=== PATIENT | female | born 1925 | race Caucasian/White ===

== ENCOUNTER 2016-12-27 19:40 | Inpatient (IN) | payer OTHER, MEDICARE ==
[~2016-12-27] VITALS: Ht 154.9 cm; Wt 81.4 kg
[2016-12-27] MEDS ORDERED: SODIUM CHLORIDE 0.9% 1000ML 1,000 ML IV STA (20:08)
[2016-12-27] MEDS ORDERED: SIMV10TA2 PO (20:26)
[2016-12-27] MEDS ORDERED: BND25 PO (20:26)
[2016-12-27] MEDS ORDERED: METO25TA56 PO (20:26)
[2016-12-27] MEDS ORDERED: MULT60CA PO (20:26)
[2016-12-27] MEDS ORDERED: CLOP1TAB15 PO (20:26)
[2016-12-27] MEDS ORDERED: NMN5 PO (20:26)
[2016-12-27] MEDS ORDERED: ASPI81TA28 PO (20:26)
[2016-12-27] MEDS ORDERED: DONE1TAB11 PO (20:26)
[2016-12-27 20:35] LABS: URINE APPEARANCE CLEAR (CLEAR); URINE BILIRUBIN NEG (NEG); URINE COLOR YELLOW; URINE EPITHELIAL CELL AUTO 20-30 /lpf (0-5); URINE NITRITE NEG (NEG); URINE SPECIFIC GRAVITY 1.018 (1.000-1.030); UROBILINOGEN NEG (NEG)
[2016-12-27 20:38] LABS: MANUAL MICROSCOPIC REQUIRED? NO; REVIEW REQ? NO
[2016-12-27 21:36] LABS: BASO % 0.3 %; BASO ABS # 0.04 K/uL (0-0.2); COMPLETE YES; EOS % 2.9 %; HEMATOCRIT 43.9 % (37-47); IG% 0.2 %; LYMPH % 25.8 %; LYMPH ABS # 3.27 K/uL (1.2-3.4); MEAN CELL VOLUME 95.6 fL (80-100); MEAN CORPUSCULAR HEMOGLOBIN 32.5 pg (25-34); MEAN CORPUSCULAR HGB CONC 33.9 g/dl (32-36); MONO % 8.7 %; NEUT % 62.1 %; PLATELET COUNT 236 K/uL (130-400); RED BLOOD COUNT 4.59 M/uL (4.2-5.4); WHITE BLOOD COUNT 12.69 K/uL (4.8-10.8)
[2016-12-27 21:44] LABS: PARTIAL THROMBOPLASTIN RATIO 1.1; PROTHROMBIN TIME (PATIENT) 10.9 SECONDS (9.0-12.0)
--- NOTE | 2016-12-27 21:55 | DIAGNOSTIC IMAGING REPORT ---
LEFT KNEE 1 OR 2 VIEWS ROUTINE CLINICAL HISTORY: Fall. Left knee hematoma. COMPARISON: None FINDINGS: Alignment of the total left knee arthroplasty is anatomic. There are 2 screws within the distal left femur. Alignment of the left knee is anatomic. Lateral view demonstrates a distal left femoral lucency adjacent to the anterior aspect of the femoral component of the knee arthroplasty There is a possible small left knee joint effusion. Edema/contusion of the anterolateral subcutaneous tissues of the left knee is noted. IMPRESSION: 1. Status post total left knee arthroplasty. Distal left femoral periprosthetic lucency. This is equivocal for a nondisplaced periprosthetic fracture. 2. Possible small left knee joint effusion. 3. Edema/contusion of the subcutaneous tissues of the anterolateral left knee. Electronically signed by: Kelvin Garcia M.D. 12/27/2016 9:53 PM Dictated Date/Time: 12/27/2016 9:46 PM
--- NOTE | 2016-12-27 21:56 | DIAGNOSTIC IMAGING REPORT ---
CHEST ONE VIEW PORTABLE CLINICAL HISTORY: Weakness. Fall. COMPARISON STUDY: No previous studies for comparison. FINDINGS: Lung volumes are normal. There is no consolidation. There is hazy left basilar opacity. Mild cardiomegaly is noted. There is no evidence of pulmonary edema. There is no pneumothorax or pleural effusion. IMPRESSION: 1. No acute cardiopulmonary findings. 2. Hazy left basilar opacity. While nonspecific, epicardial fat pad or atelectasis is favored. Electronically signed by: Kelvin Garcia M.D. 12/27/2016 9:55 PM Dictated Date/Time: 12/27/2016 9:54 PM
[2016-12-27 22:11] LABS: ALT/SGPT 17 U/L (12-78); BLOOD UREA NITROGEN 29 mg/dl (7-18); BUN/CREATININE RATIO 23.9 (10-20); CALCIUM 9.1 mg/dl (8.5-10.1); CARBON DIOXIDE 28 mmol/L (21-32); CHLORIDE 108 mmol/L (98-107); GLUCOSE 79 mg/dl (70-99); MAGNESIUM 2.5 mg/dl (1.8-2.4); POTASSIUM 4.4 mmol/L (3.5-5.1); SODIUM 142 mmol/L (136-145)
[2016-12-27 22:22] LABS: ALKALINE PHOSPHATASE 154 U/L (45-117); AST/SGOT 19 U/L (15-37)
[2016-12-27] MEDS ORDERED: CIPROFLOXACIN 400MG / 200ML D5W IV STA (22:32)
--- NOTE | 2016-12-27 23:52 | History and Physical ---
History & Physical Date & Time of Service: Dec 27, 2016 at 23:52 Chief Complaint: Fell,Dizzy,Weak For 5 Days,Hematoma L Knee Replace Primary Care Physician: Chris Hoang D.O. History of Present Illness Source: patient The patient is an 89-year-old female who is brought to the emergency department due to a fall just prior to arrival, where the patient landed on her left knee and developed a large discolored area with swelling. Her daughter reports that the patient thinks that tripped over a rug, but she is not completely sure, and she was able to walk with the aid of her walker from the house to the car after she fell. The patient had previously been on blood thinners, but was taken off of them due to increased frequency of falling. She has atrial fibrillation, and has been told recently that her blood pressure was in the systolic 90s at her doctor's visit 2 days ago. The patient denies being lightheaded or dizzy prior to the incident, but she does have some baseline dementia. Past Medical/Surgical History Medical Problems: (1) Atrial fibrillation Status: Chronic (2) Hypertension Status: Chronic Surgical Problems: (1) S/P knee replacement Status: Resolved Social History Smoking Status: Never Smoker Smokeless Tobacco Use: No Alcohol Use: none Drug Use: none Marital Status: Occupational Status: retired Immunizations History of Tetanus Vaccine?: Yes History of Pneumococcal: Yes History of Hepatitis B Vaccine: No Multi-Drug Resistant Organisms History of MDRO: No Allergies Coded Allergies: Penicillins (Verified Allergy, Mild, HIVES, 12/27/16) Celecoxib (Verified Allergy, Unknown, UNKNOWN, 12/27/16) Rofecoxib (Verified Allergy, Unknown, UNKNOWN, 12/27/16) Home Medications Scheduled Aspirin (Aspirin Ec), 81 MG PO QAM Clopidogrel (Plavix), 75 MG PO QAM Diphenhydramine Hcl (Benadryl), 25 MG PO QPM Donepezil Hydrochloride (Donepezil Hcl), 5 MG PO QPM Memantine (Namenda), 5 MG PO BID Metoprolol Tartrate (Lopressor) (Lopressor), 25 MG PO BID Multiple Vitamins W/ Minerals (Preservision Areds 2), 1 CAP PO QAM Simvastatin (Zocor), 10 MG PO QPM Review of Systems The patient denies chest pain, palpitations, shortness of breath, cough, sore throat, fevers, chills, sweats, fatigue, nausea, vomiting, abdominal pain, pelvic pain, blood in urine or stool, dysuria, urinary frequency or urgency, lightheadedness, dizziness, headache, numbness or tingling in arms, generalized arthralgias or myalgias, back or neck pain, night sweats, or allergy symptoms. The review of systems is otherwise negative other than for that already noted above, and at least 10 systems have been reviewed. Physical Exam Vital Signs Date Time Temp Pulse Resp B/P (MAP) Pulse Ox O2 Delivery O2 Flow Rate FiO2 12/27/16 22:53 85 18 136/96 95 Room Air 12/27/16 21:06 94 Room Air 12/27/16 21:06 84 18 154/81 94 Room Air 93 166/88 83 163/86 12/27/16 19:47 36.5 84 16 163/79 96 Room Air The patient is awake, well-developed and adequately nourished, alert and oriented 2, normocephalic and atraumatic, lying in bed and in no acute distress. HEENT--PERRL, EOMI, mucous membranes and oropharynx normal. Neck--supple, no JVD or bruits, thyroid normal, trachea midline, no adenopathy. Heart--normal S1 and S2, no extra beats, no murmurs, rubs or gallops. Lungs--clear bilaterally , but diminished throughout, no respiratory distress, no accessory muscle use. Abdomen--normal bowel sounds and soft, nontender and nondistended, no hernias or masses, no organomegaly. Extremities--ecchymoses over left knee. There are good distal pulses b/l. Dermatologic--normal skin turgor, ecchymosis over left knee. Neurologic--cranial nerves II through XII grossly intact, motor and sensory examination normal. Rheumatologic--reproducible pain over distal left femoral area. Psychiatric--normal affect. Diagnostics Laboratory Results Results Past 24 Hours Test 12/27/16 20:01 12/27/16 21:24 Range/Units Urine Color YELLOW Urine Appearance CLEAR CLEAR Urine pH 5.0 4.5-7.5 Urine Specific [place] 1.018 1.000-1.030 Urine Protein NEG NEG Urine Glucose (UA) NEG NEG Urine Ketones NEG NEG Urine Occult Blood TRACE NEG Urine Nitrite NEG NEG Urine Bilirubin NEG NEG Urine Urobilinogen NEG NEG Urine Leukocyte Esterase MODERATE NEG Urine WBC (Auto) >30 0-5 /hpf Urine RBC (Auto) 0-4 0-4 /hpf Urine Hyaline Casts (Auto) 1-5 0-5 /lpf Urine Epithelial Cells (Auto) 20-30 0-5 /lpf Urine Bacteria (Auto) NEG NEG White Blood Count 12.69 4.8-10.8 K/uL Red Blood Count 4.59 4.2-5.4 M/uL Hemoglobin 14.9 12.0-16.0 g/dL Hematocrit 43.9 37-47 % Mean Corpuscular Volume 95.6 80-100 fL Mean Corpuscular Hemoglobin 32.5 25-34 pg Mean Corpuscular Hemoglobin Concent 33.9 32-36 g/dl Platelet Count 236 130-400 K/uL Mean Platelet Volume 9.0 7.4-10.4 fL Neutrophils (%) (Auto) 62.1 % Lymphocytes (%) (Auto) 25.8 % Monocytes (%) (Auto) 8.7 % Eosinophils (%) (Auto) 2.9 % Basophils (%) (Auto) 0.3 % Neutrophils # (Auto) 7.88 1.4-6.5 K/uL Lymphocytes # (Auto) 3.27 1.2-3.4 K/uL Monocytes # (Auto) 1.11 0.11-0.59 K/uL Eosinophils # (Auto) 0.37 0-0.5 K/uL Basophils # (Auto) 0.04 0-0.2 K/uL RDW Standard Deviation 50.3 36.4-46.3 fL RDW Coefficient of Variation 14.3 11.5-14.5 % Immature Granulocyte % (Auto) 0.2 % Immature Granulocyte # (Auto) 0.02 0.00-0.02 K/uL Prothrombin Time 10.9 9.0-12.0 SECONDS Prothromb Time International Ratio 1.0 0.9-1.1 Activated Partial Thromboplast Time 27.8 21.0-31.0 SECONDS Partial Thromboplastin Ratio 1.1 Sodium Level 142 136-145 mmol/L Potassium Level 4.4 3.5-5.1 mmol/L Chloride Level 108 98-107 mmol/L Carbon Dioxide Level 28 21-32 mmol/L Anion Gap 6.0 3-11 mmol/L Blood Urea Nitrogen 29 7-18 mg/dl Creatinine 1.20 0.60-1.20 mg/dl Est Creatinine Clear Calc Drug Dose 30.8 ml/min Estimated GFR () 46.4 Estimated GFR (Non- 40.0 BUN/Creatinine Ratio 23.9 10-20 Random Glucose 79 70-99 mg/dl Calcium Level 9.1 8.5-10.1 mg/dl Magnesium Level 2.5 1.8-2.4 mg/dl Total Bilirubin 0.4 0.2-1 mg/dl Direct Bilirubin 0.2 0-0.2 mg/dl Aspartate Amino Transf (AST/SGOT) 19 15-37 U/L Alanine Aminotransferase (ALT/SGPT) 17 12-78 U/L Alkaline Phosphatase 154 45-117 U/L Troponin I < 0.015 0-0.045 ng/ml Total Protein 7.1 6.4-8.2 gm/dl Albumin 3.5 3.4-5.0 gm/dl Lipase 244 73-393 U/L Thyroid Stimulating Hormone (TSH) 1.410 0.300-4.500 uIu/ml Microbiology Results 12/27/16 Urine Culture, Received Pending Diagnostic Radiology Patient Name: KANDIS DAVIS Unit Number: [id number] Dictated: 12/27/162145 Transcribed: 12/27/162145 Printed Date/Time: [~ rep prt dt]/[~ rep prt tm] [~ rep ct labl] - [~ rep ct ivnm] [facility] [place] [address] Dictated: 12/27/162145 Transcribed: 12/27/162145 Printed Date/Time: [~ rep prt dt]/[~ rep prt tm] [~ rep ct labl] - [~ rep ct ivnm] [~ rep ct add3]] LEFT KNEE 1 OR 2 VIEWS ROUTINE CLINICAL HISTORY: Fall. Left knee hematoma. COMPARISON: None FINDINGS: Alignment of the total left knee arthroplasty is anatomic. There are 2 screws within the distal left femur. Alignment of the left knee is anatomic. Lateral view demonstrates a distal left femoral lucency adjacent to the anterior aspect of the femoral component of the knee arthroplasty There is a possible small left knee joint effusion. Edema/contusion of the anterolateral subcutaneous tissues of the left knee is noted. IMPRESSION: 1. Status post total left knee arthroplasty. Distal left femoral periprosthetic lucency. This is equivocal for a nondisplaced periprosthetic fracture. 2. Possible small left knee joint effusion. 3. Edema/contusion of the subcutaneous tissues of the anterolateral left knee. Electronically signed by: Kelvin Garcia M.D. 12/27/2016 9:53 PM Dictated Date/Time: 12/27/2016 9:46 PM The status of this report is Signed. Draft = Not yet reviewed or approved by Radiologist. Signed = Reviewed and approved by Radiologist. <AttendingPhy></AttendingPhy> <FamilyPhy>Chris Hoang D.O.</FamilyPhy> < PrimaryPhy>Chris Hoang D.O.</PrimaryPhy> <UnitNumber>[id number]</ UnitNumber> <VisitNumber>[id number]</VisitNumber> <PatientName>BRENDON DAVISCE</ PatientName> <DateOfBirth>1925</DateOfBirth> <Location>[facility]</Location> < ServiceDate>12/27/16</ServiceDate> <MNE>ESINDI</MNE> <OrderingPhy>Rajendra Ann MD</OrderingPhy> <OrderingPhyMNE>f rep ord dr cheatham</OrderingPhyMNE> < DictatingPhyMNE>f rep dict dr che[place]</DictatingPhyMNE> <CCListMNE>f rep ct [place]</ CCListMNE> <AdmittingPhyMNE>f pt admit dr cheatham</AdmittingPhyMNE> <AttendingPhyMNE >f pt attend dr cheatham</AttendingPhyMNE> <ConsultingPhyMNE>f pt consult dr cheatham</ConsultingPhyMNE> <FamilyPhyMNE>f pt fam dr cheatham</FamilyPhyMNE> <OtherPhyMNE>f pt other dr cheatham</OtherPhyMNE> < PrimaryPhyMNE>f pt prim care dr cheatham</PrimaryPhyMNE> <ReferringPhyMNE>f pt referring dr cheatham</ReferringPhyMNE> Patient Name: KANDIS DAVIS Unit Number: [id number] Dictated: 12/27/162153 Transcribed: 12/27/162153 JA Printed Date/Time: [~ rep prt dt]/[~ rep prt tm] [~ rep ct labl] - [~ rep ct ivnm] [facility] [place] [address] Dictated: 12/27/162153 Transcribed: 12/27/162153 JA Printed Date/Time: [~ rep prt dt]/[~ rep prt tm] [~ rep ct labl] - [~ rep ct ivnm] [~ rep ct add3]] CHEST ONE VIEW PORTABLE CLINICAL HISTORY: Weakness. Fall. COMPARISON STUDY: No previous studies for comparison. FINDINGS: Lung volumes are normal. There is no consolidation. There is hazy left basilar opacity. Mild cardiomegaly is noted. There is no evidence of pulmonary edema. There is no pneumothorax or pleural effusion. IMPRESSION: 1. No acute cardiopulmonary findings. 2. Hazy left basilar opacity. While nonspecific, epicardial fat pad or atelectasis is favored. Electronically signed by: Kelvin Garcia M.D. 12/27/2016 9:55 PM Dictated Date/Time: 12/27/2016 9:54 PM The status of this report is Signed. Draft = Not yet reviewed or approved by Radiologist. Signed = Reviewed and approved by Radiologist. <AttendingPhy></AttendingPhy> <FamilyPhy>Chris Hoang D.O.</FamilyPhy> < PrimaryPhy>Chris Hoang D.O.</PrimaryPhy> <UnitNumber>[id number]</ UnitNumber> <VisitNumber>[id number]</VisitNumber> <PatientName>KANDIS DAVIS</ PatientName> <DateOfBirth>1925</DateOfBirth> <Location>[facility]</Location> < ServiceDate>12/27/16</ServiceDate> <MNE>ESINDI</MNE> <OrderingPhy>Rajendra Ann MD</OrderingPhy> <OrderingPhyMNE>f rep ord dr cheatham</OrderingPhyMNE> < DictatingPhyMNE>f rep dict dr che[place]</DictatingPhyMNE> <CCListMNE>f rep ct [place]</ CCListMNE> <AdmittingPhyMNE>f pt admit dr cheatham</AdmittingPhyMNE> <AttendingPhyMNE >f pt attend dr cheatham</AttendingPhyMNE> <ConsultingPhyMNE>f pt consult dr cheatham</ConsultingPhyMNE> <FamilyPhyMNE>f pt fam dr cheatham</FamilyPhyMNE> <OtherPhyMNE>f pt other dr cheatham</OtherPhyMNE> < PrimaryPhyMNE>f pt prim care dr cheatham</PrimaryPhyMNE> <ReferringPhyMNE>f pt referring dr cheatham</ReferringPhyMNE> Impression Assessment and Plan Distal left femoral periprosthetic fracture/status post left total knee arthroplasty--the patient will be admitted to the medical surgical floor, consult her orthopedist Dr. Sandoval. She'll be Nonweightbearing on the left leg. Morphine 2-4 mg IV every 2 hours when necessary pain. Continue with knee immobilizer. Atrial fibrillation/hypertension--hold aspirin 81 mg by mouth every morning and clopidogrel 75 mg by mouth every morning. Continue metoprolol tartrate 25 mg by mouth twice a day. Dementia--continue donepezil 5 mg by mouth every afternoon and Namenda 5 mg by mouth twice a day. Hyperlipidemia--continue simvastatin 10 mg by mouth every afternoon. Level of Care Med/Surg Advanced Directives Existing Advance Directive: No Existing Living Will: No Existing Power of Artificial Pearl Maker: No Resuscitation Status FULL RESUSCITATION VTE Prophylaxis VTE Risk Assessment Done? Y/N: Yes Risk Level: Moderate Given or contraindicated: SCD's
[2016-12-28] MEDS ORDERED: ONDANSETRON INJ 2 MG/ML 2 ML VIAL IV PRN (00:30)
[2016-12-28] MEDS ORDERED: ACETAMINOPHEN 325 MG TAB PO PRN (00:30)
[2016-12-28] MEDS ORDERED: MoRPHine SULFATE 4 MG/ML 1 ML CARP\\VIAL IV PRN (00:30)
[2016-12-28] MEDS ORDERED: MoRPHine SULFATE 2 MG/ML CARP IV PRN (00:30)
[2016-12-28 01:16] VITALS: BP 155/79; PULSE 70; TEMP 36.5; O2SAT 97; Ht 154.9 cm; Wt 81.4 kg
[2016-12-28] MEDS: NSS + 20MEQ KCL 1000ML 1,000 ML IV SCH ×2 (01:42→09:31)
[2016-12-28] MEDS: AZTREONAM IV 1,000 MG in DEXTROSE 5% 100ML 100 ML IV SCH ×2 (01:45→09:31)
--- NOTE | 2016-12-28 02:22 | EMERGENCY ROOM VISIT NOTE ---
History Report prepared by Marta: Brandon Jones Under the Supervision of: Dr. Rajendra Ann M.D. First contact with patient: 20:07 Chief Complaint: KNEEPAIN Stated Complaint: FELL,DIZZY,WEAK FOR 5 DAYS,HEMATOMA L KNEE REPLACE History of Present Illness The patient is an 89 year old female who presents to the Emergency Room with complaints of constant, left knee pain beginning prior to arrival. The patient' s daughter states that prior to arrival, the patient fell and landed on her left knee. She reports that the patient told her she thinks she tripped on her rug, but she cannot remember. The patient denies hitting her head. The daughter notes that the patient was able to ambulate from the house to the car with a walker after she fell. She denies the patient showing any signs of a stroke. The daughter states the patient had a knee replacement 12 years ago. She notes the patient has a history of falling, and she was taken off of her blood thinner a few years ago, due to her increased fall rate. The daughter reports that the patient went to the doctors two days ago and was told she was hypotensive. She notes the patient is also has medically controlled A-fib. The patient states that her vision was fuzzy and was hard of hearing. Pt denies LOC , headache, fevers, chills, diaphoresis, visual changes, neck pain, chest pain, breathing difficulties, nausea, vomiting, abdominal pain, back pain, melena, hematochezia, urinary symptoms, numbness, lymphadenopathy, rash, or other complaints. Source of History: patient Onset: prior to arrival Position: knee (left) Timing: constant Note: Associated symptoms: fuzzy vision and hard of hearing Review of Systems See HPI for pertinent positives and negatives. A total of ten systems were reviewed and were otherwise negative. Past Medical & Surgical Medical Problems: (1) Atrial fibrillation (2) Hypertension (3) Zenia-prosthetic femoral shaft fracture (4) UTI (urinary tract infection) Surgical Problems: (1) S/P knee replacement Social History Smoking Status: Never Smoker Current/Historical Medications Scheduled Aspirin (Aspirin Ec), 81 MG PO QAM Clopidogrel (Plavix), 75 MG PO QAM Diphenhydramine Hcl (Benadryl), 25 MG PO QPM Donepezil Hydrochloride (Donepezil Hcl), 5 MG PO QPM Memantine (Namenda), 5 MG PO BID Metoprolol Tartrate (Lopressor) (Lopressor), 25 MG PO BID Multiple Vitamins W/ Minerals (Preservision Areds 2), 1 CAP PO QAM Simvastatin (Zocor), 10 MG PO QPM Allergies Coded Allergies: Penicillins (Verified Allergy, Mild, HIVES, 12/27/16) Celecoxib (Verified Allergy, Unknown, UNKNOWN, 12/27/16) Rofecoxib (Verified Allergy, Unknown, UNKNOWN, 12/27/16) Physical Exam Vital Signs Date Time Temp Pulse Resp B/P (MAP) Pulse Ox O2 Delivery O2 Flow Rate FiO2 12/27/16 22:53 85 18 136/96 95 Room Air 12/27/16 21:06 94 Room Air 12/27/16 21:06 84 18 154/81 94 Room Air 93 166/88 83 163/86 12/27/16 19:47 36.5 84 16 163/79 96 Room Air Physical Exam GENERAL: Awake, alert, tired-appearing, in no distress HENT: Normocephalic, atraumatic. Oropharynx unremarkable. EYES: Normal conjunctiva. Sclera non-icteric. NECK: Supple. No nuchal rigidity. FROM. No JVD. RESPIRATORY: Clear to auscultation. CARDIAC: Regular rate, normal rhythm. Extremities warm and well perfused. Pulses equal. ABDOMEN: Soft, non-distended. No tenderness to palpation. No rebound or guarding. No masses. RECTAL: Deferred. MUSCULOSKELETAL: Chest examination reveals no tenderness. The back is symmetrical on inspection without obvious abnormality. There is no CVA tenderness to palpation. No joint edema. LOWER EXTREMITIES: Calves are equal size bilaterally and non-tender. 1+ edema. Left knee shows a large hematoma, tender to palpation. NEURO: Normal sensorium. No sensory or motor deficits noted. SKIN: No rash or jaundice noted. Medical Decision & Procedures ER Provider Diagnostic Interpretation: X-ray: Per my interpretation, radiologist review. LEFT KNEE 1 OR 2 VIEWS ROUTINE CLINICAL HISTORY: Fall. Left knee hematoma. COMPARISON: None FINDINGS: Alignment of the total left knee arthroplasty is anatomic. There are 2 screws within the distal left femur. Alignment of the left knee is anatomic. Lateral view demonstrates a distal left femoral lucency adjacent to the anterior aspect of the femoral component of the knee arthroplasty There is a possible small left knee joint effusion. Edema/contusion of the anterolateral subcutaneous tissues of the left knee is noted. IMPRESSION: 1. Status post total left knee arthroplasty. Distal left femoral periprosthetic lucency. This is equivocal for a nondisplaced periprosthetic fracture. 2. Possible small left knee joint effusion. 3. Edema/contusion of the subcutaneous tissues of the anterolateral left knee. Electronically signed by: Kelvin Garcia M.D. 12/27/2016 9:53 PM Dictated Date/Time: 12/27/2016 9:46 PM CHEST ONE VIEW PORTABLE CLINICAL HISTORY: Weakness. Fall. COMPARISON STUDY: No previous studies for comparison. FINDINGS: Lung volumes are normal. There is no consolidation. There is hazy left basilar opacity. Mild cardiomegaly is noted. There is no evidence of pulmonary edema. There is no pneumothorax or pleural effusion. IMPRESSION: 1. No acute cardiopulmonary findings. 2. Hazy left basilar opacity. While nonspecific, epicardial fat pad or atelectasis is favored. Electronically signed by: Kelvin Garcia M.D. 12/27/2016 9:55 PM Dictated Date/Time: 12/27/2016 9:54 PM Laboratory Results 12/27/16 21:24 Red Blood Count 4.59, Mean Corpuscular Volume 95.6, Mean Corpuscular Hemoglobin 32.5, Mean Corpuscular Hemoglobin Concent 33.9, Mean Platelet Volume 9.0, Neutrophils (%) (Auto) 62.1, Lymphocytes (%) (Auto) 25.8, Monocytes (%) (Auto) 8.7, Eosinophils (%) (Auto) 2.9, Basophils (%) (Auto) 0.3, Neutrophils # (Auto) 7.88, Lymphocytes # (Auto) 3.27, Monocytes # (Auto) 1.11, Eosinophils # (Auto) 0.37, Basophils # (Auto) 0.04 12/27/16 21:24 Test 12/27/16 20:01 12/27/16 21:24 Urine Color YELLOW Urine Appearance CLEAR (CLEAR) Urine pH 5.0 (4.5-7.5) Urine Specific [place] 1.018 (1.000-1.030) Urine Protein NEG (NEG) Urine Glucose (UA) NEG (NEG) Urine Ketones NEG (NEG) Urine Occult Blood TRACE (NEG) Urine Nitrite NEG (NEG) Urine Bilirubin NEG (NEG) Urine Urobilinogen NEG (NEG) Urine Leukocyte Esterase MODERATE (NEG) Urine WBC (Auto) >30 /hpf (0-5) Urine RBC (Auto) 0-4 /hpf (0-4) Urine Hyaline Casts (Auto) 1-5 /lpf (0-5) Urine Epithelial Cells (Auto) 20-30 /lpf (0-5) Urine Bacteria (Auto) NEG (NEG) White Blood Count 12.69 K/uL (4.8-10.8) Red Blood Count 4.59 M/uL (4.2-5.4) Hemoglobin 14.9 g/dL (12.0-16.0) Hematocrit 43.9 % (37-47) Mean Corpuscular Volume 95.6 fL (80-100) Mean Corpuscular Hemoglobin 32.5 pg (25-34) Mean Corpuscular Hemoglobin Concent 33.9 g/dl (32-36) Platelet Count 236 K/uL (130-400) Mean Platelet Volume 9.0 fL (7.4-10.4) Neutrophils (%) (Auto) 62.1 % Lymphocytes (%) (Auto) 25.8 % Monocytes (%) (Auto) 8.7 % Eosinophils (%) (Auto) 2.9 % Basophils (%) (Auto) 0.3 % Neutrophils # (Auto) 7.88 K/uL (1.4-6.5) Lymphocytes # (Auto) 3.27 K/uL (1.2-3.4) Monocytes # (Auto) 1.11 K/uL (0.11-0.59) Eosinophils # (Auto) 0.37 K/uL (0-0.5) Basophils # (Auto) 0.04 K/uL (0-0.2) RDW Standard Deviation 50.3 fL (36.4-46.3) RDW Coefficient of Variation 14.3 % (11.5-14.5) Immature Granulocyte % (Auto) 0.2 % Immature Granulocyte # (Auto) 0.02 K/uL (0.00-0.02) Prothrombin Time 10.9 SECONDS (9.0-12.0) Prothromb Time International Ratio 1.0 (0.9-1.1) Activated Partial Thromboplast Time 27.8 SECONDS (21.0-31.0) Partial Thromboplastin Ratio 1.1 Anion Gap 6.0 mmol/L (3-11) Est Creatinine Clear Calc Drug Dose 30.8 ml/min Estimated GFR () 46.4 Estimated GFR (Non- 40.0 BUN/Creatinine Ratio 23.9 (10-20) Calcium Level 9.1 mg/dl (8.5-10.1) Magnesium Level 2.5 mg/dl (1.8-2.4) Total Bilirubin 0.4 mg/dl (0.2-1) Direct Bilirubin 0.2 mg/dl (0-0.2) Aspartate Amino Transf (AST/SGOT) 19 U/L (15-37) Alanine Aminotransferase (ALT/SGPT) 17 U/L (12-78) Alkaline Phosphatase 154 U/L (45-117) Troponin I < 0.015 ng/ml (0-0.045) Total Protein 7.1 gm/dl (6.4-8.2) Albumin 3.5 gm/dl (3.4-5.0) Lipase 244 U/L (73-393) Thyroid Stimulating Hormone (TSH) 1.410 uIu/ml (0.300-4.500) Laboratory results reviewed by me Medications Administered Medications (Trade) Dose Ordered Sig/Jeremías Route Start Time Stop Time Status Last Admin Dose Admin Sodium Chloride 1,000 ml @ 125 mls/hr Q8H STAT IV 12/27/16 20:08 12/28/16 01:12 DC 12/27/16 22:03 125 MLS/HR Ciprofloxacin/ Dextrose (Cipro / D5W) 400 mg NOW STAT IV 12/27/16 22:32 12/27/16 22:33 DC 12/27/16 22:47 400 MG ECG Indication: weakness Rate (beats per minute): 80 Rhythm: atrial fibrillation Findings: no acute ischemic change, no ectopy ED Course 2007: Ordered Sodium Chloride 1000 ml @ 125 mls/hr IV 2028: The patient was evaluated in room C08. A complete history and physical exam was performed. 2206: I reevaluated the patient and discussed her current exam findings. 2231: Ordered Cipro/D5W 400mg IV 5: Upon reexamination, the patient was resting comfortably. I discussed the test results and treatment plan with her. 2252: I discussed the patients case with Dr. Finn [facility] Hospitalist. The patient will be evaluated for further treatment. Medical Decision Medication Reconciliation: I attest that I have personally reviewed the patient' s current medication list Patient was found to have a slightly elevated blood pressure due to circumstances. I do not believe that the patient requires hypertension monitoring. Triage Nursing notes reviewed. The patient's presentation and history were concerning for a fall, weakness, and knee injury. The patient was evaluated. Had a sizable hematoma on the left knee. Blood work and urinalysis were obtained. X-ray imaging performed. The patient had a periprosthetic fracture noted. She was placed in a knee immobilizer. The patient was found to have a urinalysis concerning for infection. IV Cipro was ordered as she is allergic to penicillin. The patient had a mild leukocytosis. I discussed this with the patient and family. She had mild dehydration on chemistry panel as well. She was hydrated. Consultation was made with internal medicine. The patient was evaluated for further management. After evaluation the patient did have a small amount of redness and itching proximal to the IV site where the Cipro was infusing. This was stopped. Dr. Jay Finn was aware and will order IV aztreonam. Consults Time Called: [id number] Consulting Physician: Dr. Finn [facility] Hospitalist Returned Call: [phone] I discussed the patients case with Dr. Finn [facility] Hospitalist. The patient will be evaluated for further treatment. Impression Primary Impression: UTI (urinary tract infection) Additional Impressions: Weakness Zenia-prosthetic fracture around prosthetic knee Scribe Attestation The scribe's documentation has been prepared under my direction and personally reviewed by me in its entirety. I confirm that the note above accurately reflects all work, treatment, procedures, and medical decision making performed by me. Departure Information Dispostion Being Evaluated By Hospitalist Referrals Patrice Sandoval,RenatoO. (PCP) Patient Instructions My [facility] Problem Qualifiers
[2016-12-28] MEDS: METOPROLOL TARTRATE 25 MG TAB PO SCH ×2 (07:18→21:31)
[2016-12-28] MEDS: MEMANTINE 5 MG TAB PO SCH ×2 (07:18→21:31)
[2016-12-28 07:34] VITALS: BP_SYST 122; BP_SYST 123; BP_SYST 126; BP_DIAS 67; BP_DIAS 76; BP_DIAS 77; PULSE 70; PULSE 77; PULSE 94; TEMP 36.5; O2SAT 94
--- NOTE | 2016-12-28 09:52 | Medical Consult ---
Consultation Date of Consultation: Dec 28, 2016. Attending Physician: Jay Finn M.D. Reason for Consultation: Question Left Periprosthetic Femur Fx History of Present Illness Patient is a 89-year-old white female who is status post bilateral total knee arthroplasties by Dr. Sandoval in 2004. The patient states that her knees have been doing quite well and she's not had any problem with them. She denies that the knees are giving out on her at any time. The patient however has been having increased falls over a period of time and prior to coming to the emergency room the patient had fallen at home. She does not remember how she fell but there was no apparent loss of consciousness and no shortness of breath or chest pain or lightheadedness prior to the fall. Per history and physical, she has possible early signs of dementia. After her fall she developed a large bruised area over her left knee but was able to ambulate to the car with her walker. X-rays were taken in the emergency room and there was question of a periprosthetic distal femur fracture. She was thusly admitted for further care. We have been asked to see her for this possible injury. Currently the patient is sitting in her bed and is awake and alert and oriented to person and place. She has just finished eating her breakfast. She states that her knee is feeling fine and she has not had much in the way of pain in the knee. She apparently fell straight down onto the anterior surface of her knee. Past Medical/Surgical History Medical Problems: (1) Zenia-prosthetic fracture around prosthetic knee Status: Acute (2) Weakness Status: Acute Atrial Fibrillation HTN B[place] [address] Sandoval Social History Smoking Status: Never Smoker Smokeless Tobacco Use: No Alcohol Use: none Drug Use: none Marital Status: Occupation Status: retired Allergies Coded Allergies: Penicillins (Verified Allergy, Mild, HIVES, 12/27/16) Celecoxib (Verified Allergy, Unknown, UNKNOWN, 12/27/16) Rofecoxib (Verified Allergy, Unknown, UNKNOWN, 12/27/16) Home Medications Home Medications Scheduled Aspirin (Aspirin Ec), 81 MG PO QAM Clopidogrel (Plavix), 75 MG PO QAM Diphenhydramine Hcl (Benadryl), 25 MG PO QPM Donepezil Hydrochloride (Donepezil Hcl), 5 MG PO QPM Memantine (Namenda), 5 MG PO BID Metoprolol Tartrate (Lopressor) (Lopressor), 25 MG PO BID Multiple Vitamins W/ Minerals (Preservision Areds 2), 1 CAP PO QAM Simvastatin (Zocor), 10 MG PO QPM Current Inpatient Medications Current Inpatient Medications Medications (Trade) Dose Ordered Sig/Jeremías Route Start Time Stop Time Status Last Admin Dose Admin Acetaminophen (Tylenol Tab) 650 mg Q4H PRN PO 12/28/16 00:30 01/27/17 00:29 Donepezil HCl (Aricept Tab) 5 mg QPM PO 12/28/16 21:00 01/27/17 20:59 Memantine (Namenda Tab) 5 mg BID PO 12/28/16 09:00 01/27/17 08:59 12/28/16 07:18 5 MG Metoprolol Tartrate (Lopressor Tab) 25 mg BID PO 12/28/16 09:00 01/27/17 08:59 12/28/16 07:18 25 MG Ondansetron HCl (Zofran Inj) 4 mg Q6H PRN IV 12/28/16 00:30 01/27/17 00:29 Morphine Sulfate (MoRPHine SULFATE INJ) 2 mg Q2H PRN IV 12/28/16 00:30 01/11/17 00:29 Morphine Sulfate (MoRPHine SULFATE INJ) 4 mg Q2H PRN IV 12/28/16 00:30 01/11/17 00:29 Potassium Chloride/Sodium Chloride 1,000 ml @ 100 mls/hr Q10H IV 12/28/16 00:19 01/27/17 00:18 12/28/16 01:42 100 MLS/HR Aztreonam 1000 mg/ Dextrose 110 ml @ 100 mls/hr Q8H IV 12/28/16 02:00 01/02/17 01:59 12/28/16 01:45 100 MLS/HR Review of Systems As Per Admitting H&P Physical Exam Date Time Temp Pulse Resp B/P (MAP) Pulse Ox O2 Delivery O2 Flow Rate FiO2 12/28/16 07:34 36.5 70 18 123/67 (85) 94 Room Air 77 122/77 (92) 94 126/76 (93) 12/28/16 07:30 Room Air 12/28/16 01:16 36.5 70 16 155/79 97 Room Air 12/28/16 01:15 Room Air 12/28/16 00:53 61 18 118/63 94 12/27/16 22:53 85 18 136/96 95 Room Air 12/27/16 21:06 94 Room Air 12/27/16 21:06 84 18 154/81 94 Room Air 93 166/88 83 163/86 12/27/16 19:47 36.5 84 16 163/79 96 Room Air Examination of the patient is mainly focused on her left lower extremity. On examination she has a immobilizer on the left lower extremity. This is removed easily and the patient has a large area of spotty ecchymosis that encompasses the width of her knee and is approximately 6-7 inches in length. This area is obviously tender on palpation but not overtly so. Patient currently is able to do straight leg raise without discomfort and has good active and passive range of motion of the left knee without pain. She has some slight laxity with the medial collateral compared to the left but otherwise it does not feel grossly loose. Axial loading of the knee does not produce any pain at this time. She has no pain on palpation over the patella and/or distal femur at this time. She does not have a large effusion at this time. There are no gross motor or sensory deficits this time. Pulses feel equal. Laboratory Results Last 24 Hours Test 12/27/16 20:01 12/27/16 21:24 Urine Color YELLOW Urine Appearance CLEAR Urine pH 5.0 Urine Specific [place] 1.018 Urine Protein NEG Urine Glucose (UA) NEG Urine Ketones NEG Urine Occult Blood TRACE Urine Nitrite NEG Urine Bilirubin NEG Urine Urobilinogen NEG Urine Leukocyte Esterase MODERATE Urine WBC (Auto) >30 /hpf Urine RBC (Auto) 0-4 /hpf Urine Hyaline Casts (Auto) 1-5 /lpf Urine Epithelial Cells (Auto) 20-30 /lpf Urine Bacteria (Auto) NEG White Blood Count 12.69 K/uL Red Blood Count 4.59 M/uL Hemoglobin 14.9 g/dL Hematocrit 43.9 % Mean Corpuscular Volume 95.6 fL Mean Corpuscular Hemoglobin 32.5 pg Mean Corpuscular Hemoglobin Concent 33.9 g/dl Platelet Count 236 K/uL Mean Platelet Volume 9.0 fL Neutrophils (%) (Auto) 62.1 % Lymphocytes (%) (Auto) 25.8 % Monocytes (%) (Auto) 8.7 % Eosinophils (%) (Auto) 2.9 % Basophils (%) (Auto) 0.3 % Neutrophils # (Auto) 7.88 K/uL Lymphocytes # (Auto) 3.27 K/uL Monocytes # (Auto) 1.11 K/uL Eosinophils # (Auto) 0.37 K/uL Basophils # (Auto) 0.04 K/uL RDW Standard Deviation 50.3 fL RDW Coefficient of Variation 14.3 % Immature Granulocyte % (Auto) 0.2 % Immature Granulocyte # (Auto) 0.02 K/uL Prothrombin Time 10.9 SECONDS Prothromb Time International Ratio 1.0 Activated Partial Thromboplast Time 27.8 SECONDS Partial Thromboplastin Ratio 1.1 Sodium Level 142 mmol/L Potassium Level 4.4 mmol/L Chloride Level 108 mmol/L Carbon Dioxide Level 28 mmol/L Anion Gap 6.0 mmol/L Blood Urea Nitrogen 29 mg/dl Creatinine 1.20 mg/dl Est Creatinine Clear Calc Drug Dose 30.8 ml/min Estimated GFR () 46.4 Estimated GFR (Non- 40.0 BUN/Creatinine Ratio 23.9 Random Glucose 79 mg/dl Calcium Level 9.1 mg/dl Magnesium Level 2.5 mg/dl Total Bilirubin 0.4 mg/dl Direct Bilirubin 0.2 mg/dl Aspartate Amino Transf (AST/SGOT) 19 U/L Alanine Aminotransferase (ALT/SGPT) 17 U/L Alkaline Phosphatase 154 U/L Troponin I < 0.015 ng/ml Total Protein 7.1 gm/dl Albumin 3.5 gm/dl Lipase 244 U/L Thyroid Stimulating Hormone (TSH) 1.410 uIu/ml Assessment & Plan Assessment: Contusion left knee status post fall Plan: X-rays were reviewed with Dr. Simon and it's felt that the lucency noted on x-ray is not a fracture. This would be consistent with her exam. At this time, we will consult physical therapy to get the patient up and start ambulation weightbearing as tolerated with the immobilizer on. If the patient is a ambulating safely with the immobilizer and not having any discomfort, we will go ahead and remove the immobilizer and she how she does. She can continue ice packs on the left knee at this time to help control any further ecchymosis that may result due to her Plavix. Thank you for this consult.
[2016-12-28 16:15] VITALS: BP 123/78; PULSE 76; TEMP 36.6; O2SAT 96
--- NOTE | 2016-12-28 16:31 | Progress Note ---
Subjective Date of Service: Dec 28, 2016. Subjective Pt evaluation today including: conversation w/ patient, physical exam, chart review, lab review, review of studies, review of inpatient medication list generally feeling better no significant knee pain at rest not much with movment , she doubts she broke it. does have bruising in the area chart reviewed. no other acute complaints. Problem List Medical Problems: (1) Zenia-prosthetic fracture around prosthetic knee Status: Acute (2) Weakness Status: Acute Review of Systems Musculoskeletal: + see HPI Skin: + see HPI all other ROS otherwise negative except for as above Objective Vital Signs Date Time Temp Pulse Resp B/P (MAP) Pulse Ox O2 Delivery O2 Flow Rate FiO2 12/28/16 07:34 36.5 70 18 123/67 (85) 94 Room Air 77 122/77 (92) 94 126/76 (93) 12/28/16 07:30 Room Air 12/28/16 01:16 36.5 70 16 155/79 97 Room Air 12/28/16 01:15 Room Air 12/28/16 00:53 61 18 118/63 94 12/27/16 22:53 85 18 136/96 95 Room Air 12/27/16 21:06 94 Room Air 12/27/16 21:06 84 18 154/81 94 Room Air 93 166/88 83 163/86 12/27/16 19:47 36.5 84 16 163/79 96 Room Air Physical Exam General Appearance: no apparent distress Eyes: EOMI ENT: hearing grossly normal Neck: trachea midline Respiratory/Chest: no respiratory distress, no accessory muscle use Extremities: + pertinent finding (L knee eccymosis anterior/inferior to knee - tender to palp but without discrete area of fluctuance. no pain with abrupt movement of tibia no overt pain on gentle ROM) Neurologic/Psychiatric: apple sorter II-XII nml as tested, alert, normal mood/affect Skin: normal color, warm/dry Laboratory Results Last 24 Hours Test 12/27/16 20:01 12/27/16 21:24 Urine Color YELLOW Urine Appearance CLEAR Urine pH 5.0 Urine Specific [place] 1.018 Urine Protein NEG Urine Glucose (UA) NEG Urine Ketones NEG Urine Occult Blood TRACE Urine Nitrite NEG Urine Bilirubin NEG Urine Urobilinogen NEG Urine Leukocyte Esterase MODERATE Urine WBC (Auto) >30 /hpf Urine RBC (Auto) 0-4 /hpf Urine Hyaline Casts (Auto) 1-5 /lpf Urine Epithelial Cells (Auto) 20-30 /lpf Urine Bacteria (Auto) NEG White Blood Count 12.69 K/uL Red Blood Count 4.59 M/uL Hemoglobin 14.9 g/dL Hematocrit 43.9 % Mean Corpuscular Volume 95.6 fL Mean Corpuscular Hemoglobin 32.5 pg Mean Corpuscular Hemoglobin Concent 33.9 g/dl Platelet Count 236 K/uL Mean Platelet Volume 9.0 fL Neutrophils (%) (Auto) 62.1 % Lymphocytes (%) (Auto) 25.8 % Monocytes (%) (Auto) 8.7 % Eosinophils (%) (Auto) 2.9 % Basophils (%) (Auto) 0.3 % Neutrophils # (Auto) 7.88 K/uL Lymphocytes # (Auto) 3.27 K/uL Monocytes # (Auto) 1.11 K/uL Eosinophils # (Auto) 0.37 K/uL Basophils # (Auto) 0.04 K/uL RDW Standard Deviation 50.3 fL RDW Coefficient of Variation 14.3 % Immature Granulocyte % (Auto) 0.2 % Immature Granulocyte # (Auto) 0.02 K/uL Prothrombin Time 10.9 SECONDS Prothromb Time International Ratio 1.0 Activated Partial Thromboplast Time 27.8 SECONDS Partial Thromboplastin Ratio 1.1 Sodium Level 142 mmol/L Potassium Level 4.4 mmol/L Chloride Level 108 mmol/L Carbon Dioxide Level 28 mmol/L Anion Gap 6.0 mmol/L Blood Urea Nitrogen 29 mg/dl Creatinine 1.20 mg/dl Est Creatinine Clear Calc Drug Dose 30.8 ml/min Estimated GFR () 46.4 Estimated GFR (Non- 40.0 BUN/Creatinine Ratio 23.9 Random Glucose 79 mg/dl Calcium Level 9.1 mg/dl Magnesium Level 2.5 mg/dl Total Bilirubin 0.4 mg/dl Direct Bilirubin 0.2 mg/dl Aspartate Amino Transf (AST/SGOT) 19 U/L Alanine Aminotransferase (ALT/SGPT) 17 U/L Alkaline Phosphatase 154 U/L Troponin I < 0.015 ng/ml Total Protein 7.1 gm/dl Albumin 3.5 gm/dl Lipase 244 U/L Thyroid Stimulating Hormone (TSH) 1.410 uIu/ml Assessment and Plan fall and knee pain - now that initial pain has resolved, appears much more c/w fall//contusion causing pain than fracture. appreciate orthopedics eval and agree w plan of pain control, PT/OT. UTI - does have symptoms. treat empirically. since culture showing just 1,000 col/ml but she does have sx, will simplify abx to PO keflex Atrial fibrillation/hypertension-- follow vitals on metoprolol - did not sound to be cardiogenic fall but if any yaya/low BP would reduce dose. rate controlled. records available reviewed, not clear why she's on dual antiplatelets - hopefully could be streamlined to just one. not on anticoagulation due to fall risk - appears this was a recent decision. Dementia--continue donepezil 5 mg by mouth every afternoon and Namenda 5 mg by mouth twice a day. Hyperlipidemia--continue simvastatin 10 mg by mouth every afternoon. weakness/unsteadiness - PT/OT evals DVT proph - since working on increased mobility and does have fairly large area of eccymosis anterior to knee - will hold on pharmacologic proph today, consider starting tomorrow depending on mobility and ?ongoing hospital stay vs being able to go home.
[2016-12-28] MEDS: CEPHALEXIN MONOHYDRATE 250 MG CAP PO SCH ×2 (18:02→21:32)
[2016-12-28 18:55] VITALS: BP_SYST 142; BP_SYST 153; BP_DIAS 78; BP_DIAS 79; BP_DIAS 83; PULSE 114; PULSE 83; PULSE 89; TEMP 36.6; O2SAT 92; O2SAT 94; O2SAT 95
[2016-12-28] MEDS ORDERED: DONEPEZIL HCL 5 MG TAB PO SCH (21:00)
[2016-12-28 21:28] VITALS: BP 127/73; PULSE 80; O2SAT 95
[2016-12-28 22:45] VITALS: BP_SYST 118; BP_SYST 123; BP_DIAS 70; BP_DIAS 77; PULSE 77; PULSE 80; PULSE 82; TEMP 36.7; O2SAT 95
[2016-12-29 07:08] VITALS: BP_SYST 108; BP_SYST 112; BP_SYST 125; BP_DIAS 71; BP_DIAS 76; BP_DIAS 83; PULSE 74; PULSE 78; PULSE 84; TEMP 36.5; O2SAT 94
[2016-12-29 07:53] LABS: BASO % 0.2 %; BASO ABS # 0.02 K/uL (0-0.2); COMPLETE YES; EOS % 3.9 %; IG% 0.1 %; LYMPH % 32.4 %; LYMPH ABS # 2.71 K/uL (1.2-3.4); MEAN CELL VOLUME 95.3 fL (80-100); MEAN CORPUSCULAR HEMOGLOBIN 31.3 pg (25-34); MEAN CORPUSCULAR HGB CONC 32.8 g/dl (32-36); MEAN PLATELET VOLUME 9.2 fL (7.4-10.4); MONO % 9.6 %; NEUT % 53.8 %; PLATELET COUNT 223 K/uL (130-400); RED BLOOD COUNT 4.51 M/uL (4.2-5.4); WHITE BLOOD COUNT 8.36 K/uL (4.8-10.8)
[2016-12-29 08:28] LABS: BUN/CREATININE RATIO 24.1 (10-20); CALCIUM 8.8 mg/dl (8.5-10.1); CREATININE 0.96 mg/dl (0.60-1.20); MAGNESIUM 2.3 mg/dl (1.8-2.4); POTASSIUM 4.2 mmol/L (3.5-5.1)
[2016-12-29] MEDS: MEMANTINE 5 MG TAB PO SCH (09:19)
[2016-12-29] MEDS: CEPHALEXIN MONOHYDRATE 250 MG CAP PO SCH ×2 (09:19→12:59)
[2016-12-29] MEDS: METOPROLOL TARTRATE 25 MG TAB PO SCH (09:19)
[2016-12-29] MEDS ORDERED: KFL250 PO (10:19)
--- NOTE | 2016-12-29 10:23 | Discharge Instructions ---
Discharge Instructions Date of Service Dec 29, 2016. Admission Reason for Admission: Zenia-Prosthetic Femoral Shaft Fracture, Uti Discharge Discharge Diagnosis / Problem: no fracture, fortunately after further review it was all just bruising Discharge Goals Goal(s): Diagnostic testing, Therapeutic intervention Activity Recommendations Activity Limitations: as noted below (USE YOUR WALKER AT ALL TIMES TO MINIMIZE FALL RISK) . Instructions / Follow-Up Instructions / Follow-Up fall -you do appear safe to go home, it does look like you'd benefit from home physical therapy to improve your strength and mobility -you are much more steady and safe with your walker than without. a fall that actually led to a fracture could tera you of your independence for months (at least) and possibly forever --- so use your walker AT ALL TIMES! -while there was no fracture, we always look a situations like yours to give consideration to bone health - because we did not have access to Dr Hoang's records we weren't able to see what your specific situation was - please talk with Dr Hoang next week in regards to calcium/vitamin D and any other measures that might be appropriate to maintain good bone density for you urinary tract infection --your culture was negative, but since you had symptoms characteristic of a urinary tract infection, it was beneficial to start you on a short course of antibiotics (a small percentage of infections just don't show up on the culture) --we'll have you finish out 2 more days (8 more doses) of keflex - next dose mid -day today (the Rx has been e-prescribed to your pharmacy) Current Hospital Diet Patient's current hospital diet: Regular Diet Discharge Diet Recommended Diet: Regular Diet Pending Studies Studies pending at discharge: no Medical Emergencies . Who to Call and When: Medical Emergencies: If at any time you feel your situation is an emergency, please call 911 immediately. . Non-Emergent Contact Non-Emergency issues call your: Primary Care Provider . . "Provider Documentation" section prepared by Orestes Snow. . VTE Core Measure Inpt VTE Proph given/why not?: SCD's
[2016-12-29 10:43] VITALS: BP 125/83; PULSE 84; TEMP 36.5; O2SAT 94
--- NOTE | 2016-12-29 15:50 | Discharge Summary ---
Discharge Summary Date of Service Dec 29, 2016. Discharge Summary Admission Date: Dec 27, 2016 at 23:52 Discharge Date: Dec 29, 2016 Discharge Disposition: Home with services Principal Diagnosis: knee contusion Immunizations: History of Tetanus Vaccine?: Yes History of Pneumococcal: Yes History of Hepatitis B Vaccine: No Procedures: LEFT KNEE 1 OR 2 VIEWS ROUTINE CLINICAL HISTORY: Fall. Left knee hematoma. COMPARISON: None FINDINGS: Alignment of the total left knee arthroplasty is anatomic. There are 2 screws within the distal left femur. Alignment of the left knee is anatomic. Lateral view demonstrates a distal left femoral lucency adjacent to the anterior aspect of the femoral component of the knee arthroplasty There is a possible small left knee joint effusion. Edema/contusion of the anterolateral subcutaneous tissues of the left knee is noted. IMPRESSION: 1. Status post total left knee arthroplasty. Distal left femoral periprosthetic lucency. This is equivocal for a nondisplaced periprosthetic fracture. 2. Possible small left knee joint effusion. 3. Edema/contusion of the subcutaneous tissues of the anterolateral left knee. Electronically signed by: Kelvin Garcia M.D. 12/27/2016 9:53 PM CHEST ONE VIEW PORTABLE CLINICAL HISTORY: Weakness. Fall. COMPARISON STUDY: No previous studies for comparison. FINDINGS: Lung volumes are normal. There is no consolidation. There is hazy left basilar opacity. Mild cardiomegaly is noted. There is no evidence of pulmonary edema. There is no pneumothorax or pleural effusion. IMPRESSION: 1. No acute cardiopulmonary findings. 2. Hazy left basilar opacity. While nonspecific, epicardial fat pad or atelectasis is favored. Electronically signed by: Kelvin Garcia M.D. 12/27/2016 9:55 PM Last Resulted CBC 12/29/16 07:30 Red Blood Count 4.51, Mean Corpuscular Volume 95.3, Mean Corpuscular Hemoglobin 31.3, Mean Corpuscular Hemoglobin Concent 32.8, Mean Platelet Volume 9.2, Neutrophils (%) (Auto) 53.8, Lymphocytes (%) (Auto) 32.4, Monocytes (%) (Auto) 9.6, Eosinophils (%) (Auto) 3.9, Basophils (%) (Auto) 0.2, Neutrophils # (Auto) 4.49, Lymphocytes # (Auto) 2.71, Monocytes # (Auto) 0.80, Eosinophils # (Auto) 0.33, Basophils # (Auto) 0.02 Last Resulted BMP 12/29/16 07:30 Consultations: orthopedics Medication Reconciliation New Medications: Cephalexin Monohydrate (Cephalexin) 250 Mg Cap 250 MG PO QID, #8 CAP Continued Medications: Aspirin (Aspirin Ec) 81 Mg Tab 81 MG PO QAM Clopidogrel (Plavix) 75 Mg Tab 75 MG PO QAM, TAB Diphenhydramine Hcl (Benadryl) 25 Mg Cap 25 MG PO QPM, CAP Donepezil Hydrochloride (Donepezil Hcl) 5 Mg Tab 5 MG PO QPM for 90 Days, TAB 3 Refills Memantine (Namenda) 5 Mg Tab 5 MG PO BID, TAB Metoprolol Tartrate (Lopressor) (Lopressor) 25 Mg Tab 25 MG PO BID, TAB Multiple Vitamins W/ Minerals (Preservision Areds 2) 1 Cap Cap 1 CAP PO QAM Simvastatin (Zocor) 10 Mg Tab 10 MG PO QPM, TAB Discharge Exam Physical Exam: General Appearance: no apparent distress Eyes: EOMI ENT: hearing grossly normal Neck: trachea midline Respiratory/Chest: no respiratory distress, no accessory muscle use Extremities: normal inspection Neurologic/Psychiatric: abstract writer II-XII nml as tested, alert, normal mood/affect , + pertinent finding (steady gait with walker) Skin: normal color, warm/dry Hospital Course fall and knee pain - now that initial pain has resolved, appears much more c/w fall//contusion causing pain than fracture. orthopedics concurred - did well with PT/OT - OT initially recommending rehab but the next day she did well w PT - PT and I discussed and discussed with patient then with family - all in agreement best for her to go home w home PT. emphasized in person (as did PT) and in writing on d/c instructions - walker at all times! to f/u w PCP in regards to bone health measures. UTI - does have symptoms. treat empirically. since culture showing just 1,000 col/ml but she does have sx, will treat x 3 days - 2 more days keflex Atrial fibrillation/hypertension-- follow vitals on metoprolol - did not sound to be cardiogenic fall but if any yaya/low BP would reduce dose. rate controlled. records available reviewed, not clear why she's on dual antiplatelets - hopefully could be streamlined to just one. not on anticoagulation due to fall risk - appears this was a recent decision. Dementia--continue donepezil 5 mg by mouth every afternoon and Namenda 5 mg by mouth twice a day. Hyperlipidemia--continue simvastatin 10 mg by mouth every afternoon. weakness/unsteadiness - does well with walker - use ALL the time emphasized. home w home PT appearing safe, pt/family in agreement Total Time Spent: Less than 30 minutes This includes examination of the patient, discharge planning, medication reconciliation, and communication with other providers. Discharge Instructions Please refer to the electronic Patient Visit Report (Discharge Instructions) for additional information. Follow-Up PCP this week Additional Copies To Chris Hoang D.O.
== END 2016-12-29 14:04 | disposition home health service (06) | DRG 605 ==
LOC: C.EDB 19:42 → C.MSW 23:52 → ENRESERV 12-28 00:02
PROVIDERS: ADMIT Hospitalist; ATTEND Family Medicine
DX: S80.02XA Contusion of left knee, initial encounter (principal); N39.0 Urinary tract infection, site not specified; I48.91 Unspecified atrial fibrillation; I10 Essential (primary) hypertension; F03.90 Unspecified dementia, unspecified severity, without behavioral disturbance, psychotic disturbance, mood disturbance, and anxiety; E78.5 Hyperlipidemia, unspecified; Z79.02 Long term (current) use of antithrombotics/antiplatelets; Z79.82 Long term (current) use of aspirin; Z79.899 Other long term (current) drug therapy; Z96.653 Presence of artificial knee joint, bilateral; W19.XXXA Unspecified fall, initial encounter